=== PATIENT | female | born 1955 | race American Indian/Alaskan Native ===

== ENCOUNTER 2016-08-23 13:38 | Inpatient (IN) | payer BC, OTHER ==
[2016-08-23] MEDS ORDERED: Sodium Chloride 0.9% 1,000 ML IV ONE (14:29)
[2016-08-23] MEDS ORDERED: Morphine 4 MG/ML VIAL ONE (14:43)
[2016-08-23] MEDS ORDERED: Sodium Chloride 0.9% 1,000 ML ONE ×2 (14:43→18:12)
[2016-08-23 14:53] LABS: BASO % 0.5 % (0.0-2.0); EOS % 0.2 % (0.0-4.0); HEMATOCRIT 38.5 % (34.0-47.0); LYMPH # 0.8 K/uL (1.0-4.3); LYMPH % 15.4 % (20.0-40.0); MEAN CELL VOLUME 93.3 fL (81.0-99.0); MEAN CORPUSCULAR HGB CONC 33.2 g/dL (33.0-37.0); MEAN PLATELET VOLUME 9.3 fL (7.2-11.7); MONO # 0.4 K/uL (0.0-0.8); MONO % 7.1 % (0.0-10.0); RED CELL DISTRIBUTION WIDTH 13.7 % (11.5-14.5)
[2016-08-23 15:05] LABS: RBC URINE 2 /hpf (0-3); URINE BILIRUBIN NEGATIVE (NEGATIVE); URINE BLOOD NEGATIVE (NEGATIVE); URINE COLOR Yellow (YELLOW); URINE GLUCOSE (UA) NORMAL (Normal); URINE KETONE TRACE mg/dL (NEGATIVE); URINE LEUKOCYTE ESTERASE NEG Leu/uL (Negative); URINE PROTEIN 2+ mg/dL (NEGATIVE); URINE UROBILINOGEN NORMAL mg/dL (0.2-1.0); WBC URINE < 1 /hpf (0-5)
--- NOTE | 2016-08-23 15:41 | C.PDOC ---
History Of Present Illness 61 year old female presents to the ED with complaints of generalized abdominal pain that began around 7 o'clock this morning. Patient notes associated nausea, vomiting, and pain is progressively worsening. She mentions a history of bowel obstruction and bowel resection. Patient states last bowel movement was this morning and denies any fever or chills. Time Seen by Provider: 08/23/16 14:16 Chief Complaint (Nursing): Abdominal Pain History Per: Patient History/Exam Limitations: no limitations Onset/Duration Of Symptoms: Hrs Current Symptoms Are (Timing): Still Present Location Of Pain/Discomfort: Diffuse Radiation Of Pain To:: None Quality Of Discomfort: "Pain" Associated Symptoms: Nausea, Vomiting. denies: Fever, Chills Last Bowel Movement: Today Recent travel outside of the [place]: No Abnormal Vaginal Bleeding: No Past Medical History Reviewed: Historical Data, Nursing Documentation, Vital Signs Vital Signs: Last Vital Signs Temp 98.3 F 08/23/16 14:06 Pulse 60 08/23/16 16:32 Resp 16 08/23/16 16:32 BP 160/80 H 08/23/16 16:32 Pulse Ox 95 08/23/16 18:45 - Medical History PMH: Obstructive Bowel Other Surgeries: colon resection Family History: States: Unknown Family Hx - Social History Hx Tobacco Use: No Hx Alcohol Use: No Hx Substance Use: No - Immunization History Hx Influenza Vaccination: No Hx Pneumococcal Vaccination: No Review Of Systems Constitutional: Negative for: Fever, Chills, Sweats Cardiovascular: Negative for: Chest Pain, Palpitations Respiratory: Negative for: Cough, Shortness of Breath Gastrointestinal: Positive for: Nausea, Vomiting, Abdominal Pain. Negative for : Diarrhea Neurological: Negative for: Headache Physical Exam - Physical Exam Appears: Non-toxic, Other (patient appears uncomfortable and in pain ) Skin: Warm, Dry, No Diaphoretic, No Pale, No Rash Head: Atraumatic, Normacephalic Eye(s): bilateral: Normal Inspection Oral Mucosa: Moist Neck: Supple Chest: Symmetrical, No Deformity Cardiovascular: Rhythm Regular Respiratory: No Rales, No Rhonchi, No Stridor, No Wheezing Gastrointestinal/Abdominal: Soft, Tenderness (diffuse tenderness ), Distention ( mild distension ), No Guarding, No Rebound, Other (hypoactive bowel sounds ) Back: Normal Inspection, No Vertebral Tenderness, No Paraspinal Tenderness Extremity: Normal ROM, No Tenderness Neurological/Psych: Oriented x3, Normal Speech ED Course And Treatment - Laboratory Results Result Diagrams: 08/23/16 14:42 08/23/16 15:38 Lab Interpretation: No Acute Changes O2 Sat by Pulse Oximetry: 95 (room air ) Pulse Ox Interpretation: Normal - CT Scan/US abdomen Other Rad Studies (CT/US): Read By Radiologist (Edwar Frazier), Radiology Report Reviewed CT/US Interpretation: IMPRESSION: Findings consistent with small bowel obstruction. The transitional point is likely at the midline mid to lower abdomen adjacent to the umbilicus. There is suspicious for paraumbilical hernia. Surgical changes suggestive of prior bowel anastomosis also seen at the midline adjacent to the umbilicus. Small amount of free fluid in the abdomen and pelvis likely related to bowel obstruction. No evidence of pneumatosis or free air. Medical Decision Making Medical Decision Making: Impression: Abdominal pain associated with vomiting Prior records reviewed, patient was seen 09/28/13 for abdominal pain and admitted for SBO under med/surge Dr Flores Plan: * Labs * Xray obstructive series * IV NS Morphine Progress: XRay reviewed showing dilated small-bowel loop in the mid abdomen may suggest focal ileus. Localized small bowel obstruction is not excluded. [id number] Page surgical instrument technician for consult and Dr Flores at patient request [id number] residential door unit installer Goldie comes to ED to evaluate patient. as per surgical instrument technician dr Flores will be consult on case and to admit to medicine. Resident will apply NG tube [id number] Contact and spoke with PCP Dr Anamaria Stein who accepts patient to service Disposition - Disposition Disposition Time: 16:18 Condition: FAIR - POA Present On Arrival: None - Clinical Impression Clinical Impression: Small bowel obstruction - Scribe Statement The provider has reviewed the documentation as recorded by the Scribe Alexandra Perez All medical record entries made by the Scribe were at my direction and personally dictated by me. I have reviewed the chart and agree that the record accurately reflects my personal performance of the history, physical exam, medical decision making, and the department course for this patient. I have also personally directed, reviewed, and agree with the discharge instructions and disposition. Decision To Admit - Pt Status Changed To: Hospital Disposition Of: Inpatient - Admit Certification Admit to Inpatient:: After my assessment, the patient will require hospitalization for at least two midnights. This is because of the severity of symptoms shown, intensity of services needed, and/or the medical risk in this patient being treated as an outpatient. - InPatient: Physician Admission Certification:: Patient to be admitted for SBO, patient actively vomiting and has NG tube will treat supportive and surgery team is aware, consult Dr Flores - . Bed Request Type: Regular Admitting Physician: Nilsa Stein Patient Diagnosis: Small bowel obstruction
--- NOTE | 2016-08-23 15:48 | RAD ---
PROCEDURE: Radiographs of the chest and abdomen (obstructive series) HISTORY: abd pain COMPARISON: No prior. TECHNIQUE: AP radiograph of the chest, with upright and supine radiographs of the abdomen. FINDINGS: CHEST: Lungs: There is minor crowding at the lung bases. Cardiovascular: Normal size heart. No pulmonary vascular congestion. Pleura: No pleural fluid. No pneumothorax. Other findings: None. ABDOMEN AND PELVIS: Bowel: There is a dilated probable small bowel loops seen in the mid abdomen with air-fluid levels on both sides of the bowel loops on the upright images. Moderate residual fecal material seen throughout the colon. No other bowel dilatation is clearly seen elsewhere although some minimally irregular bowel loops may also be noted in the mid abdomen. Free air: None. Bones: Degenerative changes are seen in the spine. Other findings: None. IMPRESSION: Nonspecific dilated small-bowel loop in the mid abdomen may suggest focal ileus. Localized small bowel obstruction is not excluded.
[2016-08-23 15:53] LABS: CHLORIDE 106 mmol/L (98-107)
[2016-08-23 15:54] LABS: POTASSIUM 3.6 mmol/L (3.6-5.2); SODIUM 142 mmol/L (132-148)
[2016-08-23 15:56] LABS: ALB/GLOB RATIO 1.1 (1.0-2.1); ALKALINE PHOSPHATASE 118 U/L (38-126); ALT/SGPT 75 U/L (9-52); AST/SGOT 38 U/L (14-36); BILIRUBIN,TOTAL 0.5 mg/dL (0.2-1.3); BLOOD UREA NITROGEN 12 mg/dL (7-17); CALCIUM 9.3 mg/dl (8.6-10.4); CARBON DIOXIDE 26 mmol/L (22-30); GFR AFRICAN-AMERICAN > 60; GLUCOSE,RANDOM 105 mg/dL (65-105); TOTAL PROTEIN 7.7 g/dL (6.3-8.3)
[2016-08-23] MEDS ORDERED: Labetalol 25mg/5ml Syringe IV STA (16:01)
[2016-08-23] MEDS ORDERED: Labetalol 25mg/5ml Syringe ONE (16:22)
--- NOTE | 2016-08-23 16:28 | CP.PCM.CON ---
History of Present Illness - History of Present Illness History of Present Illness: Surgery: Dr. Flores CC: Abd pain HPI: 61F w. past hx of SBO presents to ED w. acute onset of abd pain at 7am. Pain is diffuse but most prominent in epigastric area. Pain is constant. Pain is described as '[place]". Pain accompanied by Nausea and vomiting. Pt had 10 episodes of emesis, NBNB. She did have a normal BM this morning, but no further BM or flatus since. She states that she last had this pain 3 yrs ago when she was admitted for SBO. The pain resolved without surgical intervention. In ED AXR was ordered which showed dilated loops of small bowel and air fluid levels. NGT was placed and CT has been ordered. Pt denies fever, has intermittent chills, no HURST/blurred vision, no CP/palpitations, no SOB/cough, no hematuria/dysuria. PMH: SBO PSH: x 2, myomectomy, small bowel resection Meds: OTC supplements ALL: peanuts Social: No ETOH/tobacco/drugs Fhx: non-contributory Review of Systems - Review of Systems All systems: reviewed and no additional remarkable complaints except (HPI) Past Patient History - Infectious Disease Hx of Infectious Diseases: None - Tetanus Immunizations Tetanus Immunization: Unknown - Past Medical History & Family History Past Medical History?: No - Past Social History Smoking Status: Never Smoked - CARDIAC Hx Cardiac Disorders: No - PULMONARY Hx Respiratory Disorders: No - NEUROLOGICAL Hx Neurological Disorder: No - HEENT Hx HEENT Problems: No - RENAL Hx Chronic Kidney Disease: No - ENDOCRINE/METABOLIC Hx Endocrine Disorders: No - HEMATOLOGICAL/ONCOLOGICAL Hx Blood Disorders: No - INTEGUMENTARY Hx Dermatological Problems: No - MUSCULOSKELETAL/RHEUMATOLOGICAL Hx Musculoskeletal Disorders: No Hx Falls: No - GASTROINTESTINAL Hx Gastrointestinal Disorders: Yes Hx Vomiting: Yes Other/Comment: BOWEL OBSTRUCTION PER PATIENT. CHRONIC GI PROBLEM/VOMITNG - GENITOURINARY/GYNECOLOGICAL Hx Genitourinary Disorders: No - PSYCHIATRIC Hx Substance Use: No - SURGICAL HISTORY Hx Section: Yes (x 2) Other/Comment: x 2, exploratory laparotomy and bowel resection for SBO due to bowel injury during prior ,fibroid removal - ANESTHESIA Hx Anesthesia: Yes Hx Anesthesia Reactions: No Hx Malignant Hyperthermia: No Meds Allergies/Adverse Reactions: Allergies Allergy/AdvReac Type Severity Reaction Status Date / Time peanut Allergy Intermediate Verified 08/23/16 14:12 Physical Exam - Constitutional Appears: Non-toxic, No Acute Distress - Head Exam Head Exam: ATRAUMATIC, NORMOCEPHALIC - Eye Exam Eye Exam: EOMI. absent: Scleral icterus - ENT Exam ENT Exam: Mucous Membranes Moist, Normal External Ear Exam - Neck Exam Neck exam: Positive for: Full Rom - Respiratory Exam Respiratory Exam: NORMAL BREATHING PATTERN. absent: Accessory Muscle Use, Respiratory Distress - GI/Abdominal Exam GI & Abdominal Exam: Soft, Tenderness (diffuse). absent: Distended, Firm, Guarding, Rebound, Rigid - Extremities Exam Extremities exam: Negative for: calf tenderness, pedal edema - Neurological Exam Neurological exam: Alert, Oriented x3 - Psychiatric Exam Psychiatric exam: Normal Affect, Normal Mood Results - Vital Signs Recent Vital Signs: Last Vital Signs Temp 98.3 F 08/23/16 14:06 Pulse 74 08/23/16 14:06 Resp 18 08/23/16 14:06 BP 209/94 H 08/23/16 14:06 Pulse Ox 95 08/23/16 15:41 - Labs Result Diagrams: 08/23/16 14:42 08/23/16 15:38 Labs: Laboratory Results - last 24 hr 08/23/16 08/23/16 08/23/16 14:42 14:42 15:38 WBC 5.0 RBC 4.13 Hgb 12.8 D Hct 38.5 MCV 93.3 MCH 31.0 MCHC 33.2 RDW 13.7 Plt Count 202 MPV 9.3 Neut % (Auto) 76.8 H Lymph % (Auto) 15.4 L Love % (Auto) 7.1 Eos % (Auto) 0.2 Baso % (Auto) 0.5 Neut # 3.8 Lymph # 0.8 L Love # 0.4 Eos # 0.0 Baso # 0.0 Sodium 142 Potassium 3.6 Chloride 106 Carbon Dioxide 26 Anion Gap 14 BUN 12 Creatinine 0.6 L Est GFR ( Amer) > 60 Est GFR (Non-Af Amer) > 60 Random Glucose 105 Calcium 9.3 Total Bilirubin 0.5 AST 38 H D ALT 75 H D Alkaline Phosphatase 118 Total Protein 7.7 Albumin 4.0 Globulin 3.7 Albumin/Globulin Ratio 1.1 Lipase 59 Urine Color Yellow Urine Clarity Clear Urine pH 8.0 Ur Specific [place] 1.020 Urine Protein 2+ H Urine Glucose (UA) Normal Urine Ketones Trace Urine Blood Negative Urine Nitrate Negative Urine Bilirubin Negative Urine Urobilinogen Normal Ur Leukocyte Esterase Neg Urine WBC (Auto) < 1 Urine RBC (Auto) 2 Ur Squamous Epith Cells 1 - Imaging and Cardiology Abdominal x-ray Status: Image reviewed by me, Report reviewed by me Assessment & Plan - Assessment and Plan (Free Text) Assessment: 61F w. SBO -NPO -IVF -dilaudid -zofran -f/u CT -serial abd exams -NGT low intermittent suction -GI/DVT prophylaxis -d/w attending Zemaitis PGY2
[2016-08-23] MEDS ORDERED: Iohexol 300 100 ML IJ ONE (16:40)
--- NOTE | 2016-08-23 17:52 | CT ---
PROCEDURE: CT Abdomen and Pelvis with contrast HISTORY: bowel obstruction COMPARISON: Comparison is made to the previous study dated 09/28/2013 TECHNIQUE: Contrast dose: 100 mL Omnipaque 300 Radiation dose: Total exam DLP = 471.65 mGy-cm. This CT exam was performed using one or more of the following dose reduction techniques: Automated exposure control, adjustment of the mA and/or kV according to patient size, and/or use of iterative reconstruction technique. FINDINGS: LOWER THORAX: No evidence of acute pathology or pleural effusion. NG tube seen extending to the stomach. LIVER: Unremarkable. No gross lesion or ductal dilatation. GALLBLADDER AND BILE DUCTS: Unremarkable. PANCREAS: Unremarkable. No gross lesion or ductal dilatation. SPLEEN: Unremarkable. ADRENALS: Unremarkable. No mass. KIDNEYS AND URETERS: Unremarkable. No hydronephrosis. No solid mass. VASCULATURE: Unremarkable. No aortic aneurysm. BOWEL: Findings consistent with mechanical small bowel obstruction. The transitional point is likely at the midline mid to lower abdomen at or adjacent to bowel anastomosis and paraumbilical hernia. The distal small bowel loops are collapsed. The large bowel is also partially collapse. No evidence of intestinal pneumatosis. APPENDIX: No evidence of appendicitis. PERITONEUM: Small amount of free fluid seen in the abdomen and pelvis. No evidence of free air. LYMPH NODES: Mildly enlarged mesenteric lymph nodes likely reactive. BLADDER: Unremarkable. REPRODUCTIVE: The uterus is mildly enlarged likely contains fibroids. BONES: No acute fracture. OTHER FINDINGS: None. IMPRESSION: Findings consistent with small bowel obstruction. The transitional point is likely at the midline mid to lower abdomen adjacent to the umbilicus. There is suspicious for paraumbilical hernia. Surgical changes suggestive of prior bowel anastomosis also seen at the midline adjacent to the umbilicus. Small amount of free fluid in the abdomen and pelvis likely related to bowel obstruction. No evidence of pneumatosis or free air.
[2016-08-23] MEDS: Sodium Chloride 0.9% 1,000 ML IV SCH (18:15)
[2016-08-23] MEDS ORDERED: HYDROmorphone 1 mg/ml ISec ONE (18:22)
[2016-08-23] MEDS: HYDROmorphone 0.5 mg/0.5 ml ISec IVP PRN ×2 (18:24→22:43)
[2016-08-24] MEDS: Sodium Chloride 0.9% 1,000 ML IV SCH ×3 (02:54→15:09)
--- NOTE | 2016-08-24 08:21 | CP.PCM.PN ---
Subjective - Date & Time of Evaluation Date of Evaluation: 08/24/16 Time of Evaluation: 08:18 - Subjective Subjective: Gen Sx: Dr Flores Pt S&e. NAEO. States she feels better now. Still distended. Not passing flatus. NGT was clamped. Reset to suction and flushed. Objective - Vital Signs/Intake and Output Vital Signs (last 24 hours): Temp Pulse Resp BP Pulse Ox 98.4 F 58 L 20 120/66 97 08/23/16 23:25 08/23/16 23:25 08/23/16 23:25 08/23/16 23:25 08/23/16 23:25 Intake and Output: 08/24/16 08/24/16 06:59 18:59 Intake Total 920 Balance 920 - Medications Medications: Current Medications Famotidine (Pepcid) 20 mg IVP BID [facility] Last Admin: 08/23/16 18:15 Dose: 20 mg Hydromorphone HCl (Dilaudid) 0.5 mg IVP Q4H PRN PRN Reason: Pain, moderate (4-7) Last Admin: 08/23/16 22:43 Dose: 0.5 mg Sodium Chloride (Sodium Chloride 0.9%) 1,000 mls @ 115 mls/hr IV .Q8H42M [facility] Last Admin: 08/24/16 04:35 Dose: 115 mls/hr Ondansetron HCl (Zofran Inj) 4 mg IVP Q4 PRN PRN Reason: Nausea/Vomiting Pneumococcal Polyvalent Vaccine (Pneumovax 23 Vaccine) 0.5 ml IM .ONCE ONE Stop: 08/25/16 10:01 - Constitutional Appears: Non-toxic, No Acute Distress - Respiratory Exam Respiratory Exam: absent: Accessory Muscle Use, Respiratory Distress - Cardiovascular Exam Cardiovascular Exam: REGULAR RHYTHM. absent: Tachycardia - GI/Abdominal Exam GI & Abdominal Exam: Distended, Soft, Tenderness (diffuse but improved) - Neurological Exam Neurological Exam: Alert, Awake, Oriented x3 - Psychiatric Exam Psychiatric exam: Normal Affect, Normal Mood - Skin Skin Exam: Normal Color, Warm Assessment and Plan - Assessment and Plan (Free Text) Assessment: 61F w/ SBO Plan: NPO iv fluids Cont conservative mgmt will d/w Dr Mark Orantes, PGY2
--- NOTE | 2016-08-24 10:45 | RAD ---
HISTORY: NGT COMPARISON: No prior. FINDINGS: LUNGS: No active pulmonary disease. PLEURA: No significant pleural effusion identified, no pneumothorax apparent. CARDIOVASCULAR: Normal heart size. No congestive change. Nasogastric tube extends to left upper quadrant of abdomen. Please note that the side hole of the nasogastric tube is situated at the level of the gastroesophageal junction. OSSEOUS STRUCTURES: No significant abnormalities. VISUALIZED UPPER ABDOMEN: Normal. OTHER FINDINGS: None. IMPRESSION: No infiltrate/ effusion. Nasogastric tube extends to left upper quadrant of abdomen, with side hole noted at the level of the gastroesophageal junction.
[2016-08-24 11:12] LABS: HEMATOCRIT 33.8 % (34.0-47.0); MEAN CELL VOLUME 93.2 fL (81.0-99.0); MEAN CORPUSCULAR HEMOGLOBIN 30.6 pg (27.0-31.0); MEAN CORPUSCULAR HGB CONC 32.9 g/dL (33.0-37.0); RED CELL DISTRIBUTION WIDTH 13.7 % (11.5-14.5)
--- NOTE | 2016-08-24 11:20 | CP.PCM.PN ---
Subjective - Date & Time of Evaluation Date of Evaluation: 08/24/16 Time of Evaluation: 11:17 - Subjective Subjective: PGY2 Medicine note- Dr. Stein's Service: Patient is a 61 year old female with PMHx significant for SBO x 5 in the past. Patient states that yesterday AM she had a normal bowel movement but later in the day began vomiting and had sharp acute abdominal pain around the umbilicus. Patient states that she has had similar symptoms in the past when she had a bowel obstruction. Patient denies vomiting since admission to the hospital, denies flatus, bowel movement, nausea. PMD: Emil PMHx: SBO x5 PSHx: x 2, myomectomy, bowel resection following myomectomy Meds: vitamins ALL: peanuts Social: No ETOH/tobacco/drugs Fhx: non-contributory Objective - Vital Signs/Intake and Output Vital Signs (last 24 hours): Temp Pulse Resp BP Pulse Ox 98.2 F 67 18 177/93 H 98 08/24/16 07:30 08/24/16 07:30 08/24/16 07:30 08/24/16 07:30 08/24/16 07:30 Intake and Output: 08/24/16 08/24/16 06:59 18:59 Intake Total 920 Balance 920 - Medications Medications: Current Medications Famotidine (Pepcid) 20 mg IVP BID [facility] Last Admin: 08/24/16 09:40 Dose: 20 mg Hydromorphone HCl (Dilaudid) 0.5 mg IVP Q4H PRN PRN Reason: Pain, moderate (4-7) Last Admin: 08/23/16 22:43 Dose: 0.5 mg Sodium Chloride (Sodium Chloride 0.9%) 1,000 mls @ 115 mls/hr IV .Q8H42M [facility] Last Admin: 08/24/16 04:35 Dose: 115 mls/hr Metoclopramide HCl (Reglan) 5 mg IVP Q8H [facility] Last Admin: 08/24/16 09:40 Dose: 5 mg Ondansetron HCl (Zofran Inj) 4 mg IVP Q4 PRN PRN Reason: Nausea/Vomiting Pneumococcal Polyvalent Vaccine (Pneumovax 23 Vaccine) 0.5 ml IM .ONCE ONE Stop: 08/25/16 10:01 - Labs Labs: 08/24/16 11:07 - Constitutional Appears: Non-toxic, No Acute Distress - Head Exam Head Exam: ATRAUMATIC, NORMOCEPHALIC - ENT Exam Additional comments: NG tube taped in place, suctioning small amount of fluid - Respiratory Exam Respiratory Exam: Clear to Ausculation Bilateral - Cardiovascular Exam Cardiovascular Exam: +S1, +S2 - GI/Abdominal Exam GI & Abdominal Exam: Soft, Tenderness (diffuse), Hypoactive Bowel Sounds. absent: Guarding, Rigid - Extremities Exam Extremities Exam: Normal Inspection. absent: Pedal Edema - Neurological Exam Neurological Exam: Alert, Awake - Psychiatric Exam Psychiatric exam: Normal Affect - Skin Skin Exam: Warm Assessment and Plan - Assessment and Plan (Free Text) Assessment: Small bowel obstruction NPO IV fluids dilaudid 0.5mg IV q4prn Reglan 5mg IV q8h NGT to suction Dr. Flores, general surgery, on the case- help appreciated Abd/ pelvis CT: transition point in mid/ lower abdomen adjacent to umbilicus, question of paraumbilical hernia, srugical changes- prior bowel anastamosis Abd obstruction series: dilated small bowel loops, questionable focal ileus Prophylaxis pepcid 20mg IV BID SCDs All medical management as per Dr. Stein
[2016-08-24 11:31] LABS: CHLORIDE 105 mmol/L (98-107); POTASSIUM 4.1 mmol/L (3.6-5.2); SODIUM 139 mmol/L (132-148)
[2016-08-24 11:33] LABS: GFR AFRICAN-AMERICAN > 60
[2016-08-24 11:34] LABS: ALKALINE PHOSPHATASE 89 U/L (38-126); ALT/SGPT 59 U/L (9-52); AST/SGOT 30 U/L (14-36); BILIRUBIN,TOTAL 0.5 mg/dL (0.2-1.3); BLOOD UREA NITROGEN 12 mg/dL (7-17); CARBON DIOXIDE 26 mmol/L (22-30); GLUCOSE,RANDOM 94 mg/dL (65-105); TOTAL PROTEIN 6.4 g/dL (6.3-8.3)
[2016-08-24 11:35] LABS: CALCIUM 8.4 mg/dl (8.6-10.4)
[2016-08-25] MEDS: Sodium Chloride 0.9% 1,000 ML IV SCH (02:16)
[2016-08-25] MEDS: HYDROmorphone 0.5 mg/0.5 ml ISec IVP PRN ×4 (03:23→18:55)
[2016-08-25 06:22] LABS: BASO % 0.1 % (0.0-2.0); EOS % 0.2 % (0.0-4.0); HEMATOCRIT 34.1 % (34.0-47.0); LYMPH # 0.8 K/uL (1.0-4.3); LYMPH % 11.6 % (20.0-40.0); MEAN CELL VOLUME 92.5 fL (81.0-99.0); MEAN CORPUSCULAR HEMOGLOBIN 30.6 pg (27.0-31.0); MEAN CORPUSCULAR HGB CONC 33.1 g/dL (33.0-37.0); MONO # 0.6 K/uL (0.0-0.8); MONO % 8.2 % (0.0-10.0); RED CELL DISTRIBUTION WIDTH 13.8 % (11.5-14.5)
[2016-08-25 06:45] LABS: CHLORIDE 107 mmol/L (98-107); SODIUM 137 mmol/L (132-148)
[2016-08-25 06:46] LABS: POTASSIUM 3.6 mmol/L (3.6-5.2)
[2016-08-25 06:48] LABS: ALB/GLOB RATIO 1.1 (1.0-2.1); ALKALINE PHOSPHATASE 83 U/L (38-126); ALT/SGPT 47 U/L (9-52); AST/SGOT 32 U/L (14-36); BILIRUBIN,TOTAL 0.7 mg/dL (0.2-1.3); BLOOD UREA NITROGEN 11 mg/dL (7-17); CALCIUM 8.3 mg/dl (8.6-10.4); CARBON DIOXIDE 23 mmol/L (22-30); GFR AFRICAN-AMERICAN > 60; GLUCOSE,RANDOM 86 mg/dL (65-105); TOTAL PROTEIN 6.3 g/dL (6.3-8.3)
[2016-08-25] MEDS ORDERED: Pneumococcal 23-Valent Vaccine IM ONE (10:00)
--- NOTE | 2016-08-25 10:06 | CP.PCM.PN ---
Subjective - Date & Time of Evaluation Date of Evaluation: 08/25/16 Time of Evaluation: 10:03 - Subjective Subjective: SURGERY NOTE FOR DR. CORNELIUS 61F seen and examined at bedside. Patient states she still has mild abdominal pain and now developing a headache. States she did have one bout of vomiting yesterday. Admits to flatus , denies bowel movement, NGT output 200cc in 12 hours. Objective - Vital Signs/Intake and Output Vital Signs (last 24 hours): Temp Pulse Resp BP Pulse Ox 98.5 F 58 L 18 153/82 H 99 08/25/16 07:15 08/25/16 07:15 08/25/16 07:15 08/25/16 07:15 08/25/16 07:15 Intake and Output: 08/25/16 08/25/16 06:59 18:59 Intake Total 920 Output Total 0 Balance 920 - Medications Medications: Current Medications Famotidine (Pepcid) 20 mg IVP BID [facility] Last Admin: 08/25/16 09:02 Dose: 20 mg Hydromorphone HCl (Dilaudid) 0.5 mg IVP Q4H PRN PRN Reason: Pain, moderate (4-7) Last Admin: 08/25/16 09:02 Dose: 0.5 mg Sodium Chloride (Sodium Chloride 0.9%) 1,000 mls @ 115 mls/hr IV .Q8H42M [facility] Last Admin: 08/25/16 02:16 Dose: 115 mls/hr Metoclopramide HCl (Reglan) 5 mg IVP Q8H [facility] Last Admin: 08/25/16 09:02 Dose: 5 mg Ondansetron HCl (Zofran Inj) 4 mg IVP Q4 PRN PRN Reason: Nausea/Vomiting - Labs Labs: 08/25/16 06:09 08/25/16 06:09 - Constitutional Appears: Non-toxic, No Acute Distress - Respiratory Exam Respiratory Exam: Clear to Ausculation Bilateral, NORMAL BREATHING PATTERN - Cardiovascular Exam Cardiovascular Exam: REGULAR RHYTHM, +S1, +S2 Additional comments: NGT output 200cc in 12hours - GI/Abdominal Exam GI & Abdominal Exam: Soft. absent: Distended, Firm, Guarding, Rigid, Tenderness , Rebound - Neurological Exam Neurological Exam: Alert - Skin Skin Exam: Dry, Intact, Normal Color, Warm Assessment and Plan - Assessment and Plan (Free Text) Assessment: 61F with SBO Plan: - NPO - continue IVF, pain control - GI ppx - encourage ambulation - await bowel movement Further recs discuss with Dr. Mark Castro, PGY1
--- NOTE | 2016-08-25 11:00 | CP.PCM.PN ---
Subjective - Date & Time of Evaluation Date of Evaluation: 08/25/16 Time of Evaluation: 09:10 - Subjective Subjective: PGY2 Medicine Note- Dr. Stein's service Patient seen and examined. Patient reports small amount of flatus yesterday evening but has not had flatus since. Patient reports one episode of bilious emesis as well. Patient reports epigastric pain and headache today. Objective - Vital Signs/Intake and Output Vital Signs (last 24 hours): Temp Pulse Resp BP Pulse Ox 98.5 F 58 L 18 153/82 H 99 08/25/16 07:15 08/25/16 07:15 08/25/16 07:15 08/25/16 07:15 08/25/16 07:15 Intake and Output: 08/25/16 08/25/16 06:59 18:59 Intake Total 920 Output Total 0 Balance 920 - Medications Medications: Current Medications Acetaminophen/Butalbital/Caffeine (Fioricet) 1 tab PO Q4 PRN PRN Reason: Headache Famotidine (Pepcid) 20 mg IVP BID [facility] Last Admin: 08/25/16 09:02 Dose: 20 mg Hydromorphone HCl (Dilaudid) 0.5 mg IVP Q4H PRN PRN Reason: Pain, moderate (4-7) Last Admin: 08/25/16 09:02 Dose: 0.5 mg Sodium Chloride (Sodium Chloride 0.9%) 1,000 mls @ 115 mls/hr IV .Q8H42M [facility] Last Admin: 08/25/16 02:16 Dose: 115 mls/hr Metoclopramide HCl (Reglan) 5 mg IVP Q8H [facility] Last Admin: 08/25/16 09:02 Dose: 5 mg Ondansetron HCl (Zofran Inj) 4 mg IVP Q4 PRN PRN Reason: Nausea/Vomiting - Labs Labs: 08/25/16 06:09 08/25/16 06:09 - Constitutional Appears: Non-toxic, No Acute Distress - Head Exam Head Exam: ATRAUMATIC, NORMOCEPHALIC - Eye Exam Eye Exam: EOMI - ENT Exam ENT Exam: Mucous Membranes Moist Additional comments: NGT in place, bilious output - Respiratory Exam Respiratory Exam: Clear to Ausculation Bilateral, NORMAL BREATHING PATTERN. absent: Rales, Rhonchi, Wheezes - Cardiovascular Exam Cardiovascular Exam: +S1, +S2 - GI/Abdominal Exam GI & Abdominal Exam: Soft, Tenderness (diffuse), Normal Bowel Sounds. absent: Distended, Firm - Extremities Exam Extremities Exam: absent: Pedal Edema - Neurological Exam Neurological Exam: Alert, Awake - Psychiatric Exam Psychiatric exam: Normal Affect - Skin Skin Exam: Dry, Warm Assessment and Plan - Assessment and Plan (Free Text) Assessment: Small bowel obstruction NPO IV fluids- D5 1/2 NS dilaudid 0.5mg IV q4prn Reglan 5mg IV q8h NGT to suction Dr. Flores, general surgery, on the case- help appreciated Abd/ pelvis CT: transition point in mid/ lower abdomen adjacent to umbilicus, question of paraumbilical hernia, srugical changes- prior bowel anastamosis Abd obstruction series: dilated small bowel loops, questionable focal ileus Prophylaxis pepcid 20mg IV BID heparin SC q8h SCDs All medical management as per Dr. Stein
[2016-08-25] MEDS: Potassium Chloride 20 MEQ in Dextrose 5%/0.45% NS 1,000 ML IV SCH ×2 (11:47→22:03)
[2016-08-26] MEDS: HYDROmorphone 0.5 mg/0.5 ml ISec IVP PRN (01:52)
[2016-08-26 06:13] LABS: BASO % 0.3 % (0.0-2.0); EOS # 0.1 K/uL (0.0-0.7); EOS % 1.4 % (0.0-4.0); HEMATOCRIT 31.1 % (34.0-47.0); LYMPH # 1.5 K/uL (1.0-4.3); LYMPH % 24.8 % (20.0-40.0); MEAN CELL VOLUME 92.9 fL (81.0-99.0); MEAN CORPUSCULAR HEMOGLOBIN 31.1 pg (27.0-31.0); MEAN CORPUSCULAR HGB CONC 33.5 g/dL (33.0-37.0); MEAN PLATELET VOLUME 9.6 fL (7.2-11.7); MONO # 0.5 K/uL (0.0-0.8); MONO % 8.7 % (0.0-10.0); RED CELL DISTRIBUTION WIDTH 13.8 % (11.5-14.5); WHITE BLOOD COUNT 6.1 K/uL (4.8-10.8)
[2016-08-26 06:38] LABS: CHLORIDE 104 mmol/L (98-107); SODIUM 136 mmol/L (132-148)
[2016-08-26 06:39] LABS: POTASSIUM 3.8 mmol/L (3.6-5.2)
[2016-08-26 06:40] LABS: GFR AFRICAN-AMERICAN > 60
[2016-08-26 06:41] LABS: ALKALINE PHOSPHATASE 79 U/L (38-126); ALT/SGPT 41 U/L (9-52); AST/SGOT 30 U/L (14-36); BILIRUBIN,TOTAL 0.7 mg/dL (0.2-1.3); BLOOD UREA NITROGEN 9 mg/dL (7-17); CARBON DIOXIDE 25 mmol/L (22-30); GLUCOSE,RANDOM 112 mg/dL (65-105); PHOSPHOROUS 2.6 mg/dL (2.5-4.5); TOTAL PROTEIN 6.3 g/dL (6.3-8.3)
[2016-08-26 06:42] LABS: CALCIUM 8.2 mg/dl (8.6-10.4); MAGNESIUM 1.8 mg/dL (1.6-2.3)
--- NOTE | 2016-08-26 08:21 | CP.PCM.PN ---
Subjective - Date & Time of Evaluation Date of Evaluation: 08/26/16 Time of Evaluation: 08:19 - Subjective Subjective: SURGERY NOTE FOR DR. CORNELIUS 61F seen and examined at bedside. Feels much better today, denies abdominal pain , denies nausea, vomiting overnight. Admits flatus, denies BM. Objective - Vital Signs/Intake and Output Vital Signs (last 24 hours): Temp Pulse Resp BP Pulse Ox 98.2 F 62 20 176/84 H 96 08/25/16 23:15 08/25/16 23:15 08/25/16 23:15 08/25/16 23:15 08/25/16 23:15 Intake and Output: 08/26/16 08/26/16 06:59 18:59 Intake Total 800 Output Total 100 Balance 700 - Medications Medications: Current Medications Acetaminophen/Butalbital/Caffeine (Fioricet) 1 tab PO Q4 PRN PRN Reason: Headache Famotidine (Pepcid) 20 mg IVP BID [facility] Last Admin: 08/25/16 18:46 Dose: 20 mg Heparin Sodium (Porcine) (Heparin) 5,000 units SC Q8 [facility] Last Admin: 08/26/16 05:53 Dose: 5,000 units Hydromorphone HCl (Dilaudid) 0.5 mg IVP Q4H PRN PRN Reason: Pain, moderate (4-7) Last Admin: 08/26/16 01:52 Dose: 0.5 mg Potassium Chloride 20 meq/ (Dextrose/Sodium Chloride) 1,010 mls @ 100 mls/hr IV .[id number] [facility] Last Admin: 08/25/16 22:03 Dose: 100 mls/hr Metoclopramide HCl (Reglan) 5 mg IVP Q8H [facility] Last Admin: 08/26/16 01:43 Dose: 5 mg Ondansetron HCl (Zofran Inj) 4 mg IVP Q4 PRN PRN Reason: Nausea/Vomiting - Labs Labs: 08/26/16 06:08 08/26/16 06:08 - Constitutional Appears: Non-toxic, No Acute Distress - ENT Exam ENT Exam: Mucous Membranes Moist - Respiratory Exam Respiratory Exam: Clear to Ausculation Bilateral, NORMAL BREATHING PATTERN - Cardiovascular Exam Cardiovascular Exam: REGULAR RHYTHM, +S1, +S2 - GI/Abdominal Exam GI & Abdominal Exam: Soft. absent: Distended, Firm, Guarding, Rigid, Tenderness , Rebound Additional comments: NGT placed on tramp now - Neurological Exam Neurological Exam: Alert, Awake Assessment and Plan - Assessment and Plan (Free Text) Assessment: 61F with SBO, improving Plan: - NGT on clamp - Advanced to clear liquid diet - monitor for nausea/vomiting/bowel movement - advance if patient tolerates. Further recs discuss with Dr. Mark Castro, PGY1
[2016-08-26] MEDS: Potassium Chloride 20 MEQ in Dextrose 5%/0.45% NS 1,000 ML IV SCH (09:47)
--- NOTE | 2016-08-26 15:37 | CP.PCM.PN ---
Subjective - Date & Time of Evaluation Date of Evaluation: 08/26/16 Time of Evaluation: 09:20 - Subjective Subjective: PGY2 Medicine Note- Dr. Stein's Service Patient seen and examined. Patient reports two episodes of flatus this morning. Patient denies nausea or vomiting. Patient with complaint of epigastric abdominal pain. Patient trying clear liquids today, tolerating. Objective - Vital Signs/Intake and Output Vital Signs (last 24 hours): Temp Pulse Resp BP Pulse Ox 99.3 F 67 18 198/96 H 97 08/26/16 07:20 08/26/16 07:20 08/26/16 07:20 08/26/16 07:20 08/26/16 07:20 Intake and Output: 08/26/16 08/26/16 06:59 18:59 Intake Total 800 1440 Output Total 100 Balance 700 1440 - Medications Medications: Current Medications Acetaminophen/Butalbital/Caffeine (Fioricet) 1 tab PO Q4 PRN PRN Reason: Headache Famotidine (Pepcid) 20 mg IVP BID [facility] Last Admin: 08/26/16 09:46 Dose: 20 mg Heparin Sodium (Porcine) (Heparin) 5,000 units SC Q8 [facility] Last Admin: 08/26/16 14:42 Dose: 5,000 units Hydrochlorothiazide (Hydrodiuril) 25 mg PO DAILY [facility] Last Admin: 08/26/16 11:07 Dose: 25 mg Hydromorphone HCl (Dilaudid) 0.5 mg IVP Q4H PRN PRN Reason: Pain, moderate (4-7) Last Admin: 08/26/16 01:52 Dose: 0.5 mg Potassium Chloride 20 meq/ (Dextrose/Sodium Chloride) 1,010 mls @ 80 mls/hr IV .[id number] [facility] Metoclopramide HCl (Reglan) 5 mg IVP Q8H [facility] Last Admin: 08/26/16 08:55 Dose: 5 mg Ondansetron HCl (Zofran Inj) 4 mg IVP Q4 PRN PRN Reason: Nausea/Vomiting - Labs Labs: 08/26/16 06:08 08/26/16 06:08 - Constitutional Appears: Non-toxic, No Acute Distress - Head Exam Head Exam: ATRAUMATIC, NORMOCEPHALIC - Eye Exam Eye Exam: EOMI - ENT Exam ENT Exam: Mucous Membranes Moist - Respiratory Exam Respiratory Exam: Clear to Ausculation Bilateral - Cardiovascular Exam Cardiovascular Exam: +S1, +S2 - GI/Abdominal Exam GI & Abdominal Exam: Soft, Tenderness (epigastric), Hypoactive Bowel Sounds - Extremities Exam Extremities Exam: Normal Inspection. absent: Pedal Edema - Neurological Exam Neurological Exam: Alert, Awake - Psychiatric Exam Psychiatric exam: Normal Affect - Skin Skin Exam: Warm Assessment and Plan - Assessment and Plan (Free Text) Assessment: Small bowel obstruction CLD IV fluids- D5 1/2 NS with 20 meQ potassium dilaudid 0.5mg IV q4prn Reglan 5mg IV q8h NGT glamped Dr. Flores, general surgery, on the case- help appreciated Abd/ pelvis CT: transition point in mid/ lower abdomen adjacent to umbilicus, question of paraumbilical hernia, srugical changes- prior bowel anastamosis Abd obstruction series: dilated small bowel loops, questionable focal ileus Hypertension starting HCTZ 25mg today, will continue to monitor decreased IVF rate Prophylaxis pepcid 20mg IV BID heparin SC q8h [facility] All medical management as per Dr. Stein
[2016-08-26 15:54] VITALS: RESP 20
[2016-08-26] MEDS: Apap-Butalbital-Caffeine 325-50-40mg Tab PO PRN (22:25)
[2016-08-27] MEDS: Potassium Chloride 20 MEQ in Dextrose 5%/0.45% NS 1,000 ML IV SCH ×2 (00:52→14:43)
[2016-08-27] MEDS: Apap-Butalbital-Caffeine 325-50-40mg Tab PO PRN ×2 (05:48→10:43)
--- NOTE | 2016-08-27 09:09 | CP.PCM.PN ---
Subjective - Date & Time of Evaluation Date of Evaluation: 08/27/16 Time of Evaluation: 09:07 - Subjective Subjective: SURGERY NOTE FOR DR. CORNELIUS 61F seen and examined at bedside. Doing much better today, Denies pain, denies N /V. admits to flatus and had a bowel movement. Objective - Vital Signs/Intake and Output Vital Signs (last 24 hours): Temp Pulse Resp BP Pulse Ox 98.3 F 68 20 166/100 H 97 08/27/16 08:42 08/27/16 08:42 08/27/16 08:42 08/27/16 08:42 08/27/16 08:42 Intake and Output: 08/27/16 08/27/16 06:59 18:59 Intake Total 640 Balance 640 - Medications Medications: Current Medications Acetaminophen/Butalbital/Caffeine (Fioricet) 1 tab PO Q4 PRN PRN Reason: Headache Last Admin: 08/27/16 05:48 Dose: 1 tab Amlodipine Besylate (Norvasc) 5 mg PO DAILY [facility] Famotidine (Pepcid) 20 mg IVP BID [facility] Last Admin: 08/26/16 18:39 Dose: 20 mg Heparin Sodium (Porcine) (Heparin) 5,000 units SC Q8 [facility] Last Admin: 08/27/16 05:40 Dose: 5,000 units Hydrochlorothiazide (Hydrodiuril) 25 mg PO DAILY [facility] Last Admin: 08/26/16 11:07 Dose: 25 mg Hydromorphone HCl (Dilaudid) 0.5 mg IVP Q4H PRN PRN Reason: Pain, moderate (4-7) Last Admin: 08/26/16 01:52 Dose: 0.5 mg Potassium Chloride 20 meq/ (Dextrose/Sodium Chloride) 1,010 mls @ 80 mls/hr IV .[id number] [facility] Last Admin: 08/27/16 00:52 Dose: 80 mls/hr Metoclopramide HCl (Reglan) 5 mg IVP Q8H [facility] Last Admin: 08/27/16 02:02 Dose: 5 mg Ondansetron HCl (Zofran Inj) 4 mg IVP Q4 PRN PRN Reason: Nausea/Vomiting - Labs Labs: 08/26/16 06:08 08/26/16 06:08 - Constitutional Appears: Non-toxic, No Acute Distress - Respiratory Exam Respiratory Exam: Clear to Ausculation Bilateral, NORMAL BREATHING PATTERN - Cardiovascular Exam Cardiovascular Exam: REGULAR RHYTHM, +S1, +S2 - GI/Abdominal Exam GI & Abdominal Exam: Soft. absent: Distended, Firm, Guarding, Rigid, Tenderness , Rebound - Extremities Exam Extremities Exam: absent: Pedal Edema, Tenderness - Neurological Exam Neurological Exam: Alert, Awake Assessment and Plan - Assessment and Plan (Free Text) Assessment: 61F with resolved SBO - advanced to regular - await more BM - follow up labs Further recs discuss with Dr. Mark Castro, PGY1
[2016-08-27 18:16] VITALS: BP 129/79; PULSE 78; TEMP 98; O2SAT 99
== END 2016-08-27 20:54 | disposition home or self-care (01) | DRG 390 ==
LOC: C.ER 13:38 → C.9E 16:18 → C.6T 20:09
PROVIDERS: ADMIT Internal Medicine Pulmonary Disease; ATTEND Internal Medicine Pulmonary Disease
DX: K56.60 Unspecified intestinal obstruction (principal); I10 Essential (primary) hypertension; Z90.49 Acquired absence of other specified parts of digestive tract; Z87.19 Personal history of other diseases of the digestive system; Z91.010 Allergy to peanuts

== ENCOUNTER 2018-07-23 04:55 | Inpatient (IN) | payer BC ==
--- NOTE | 2018-07-23 05:05 | C.PDOC ---
History Of Present Illness patient with hx of SBO, presents with similar complaints, which started yesterday. THey've worsened this am. Sharp, stabbing diffuse abdominal discomfort. No f/c/ Time Seen by Provider: 07/23/18 05:05 Chief Complaint (Nursing): Abdominal Pain History Per: Patient, Family History/Exam Limitations: no limitations Onset/Duration Of Symptoms: Days (1) Current Symptoms Are (Timing): Still Present Context: Other Severity: Severe Pain Scale Rating Of: 6 Location Of Pain/Discomfort: Diffuse Radiation Of Pain To:: None Quality Of Discomfort: Sharp, Cramping, Stabbing Associated Symptoms: Nausea. denies: Fever, Chills, Vomiting Exacerbating Factors: None Alleviating Factors: None Last Bowel Movement: Yesterday Recent travel outside of the [place]: No Additional History Per: Family Abnormal Vaginal Bleeding: No Past Medical History Reviewed: Historical Data, Nursing Documentation, Vital Signs - Medical History PMH: Obstructive Bowel Denies: Chronic Kidney Disease Family History: States: No Known Family Hx - Social History Hx Tobacco Use: No Hx Alcohol Use: No Hx Substance Use: No - Immunization History Hx Influenza Vaccination: No Hx Pneumococcal Vaccination: No Review Of Systems Constitutional: Negative for: Fever, Chills ENT: Negative for: Throat Pain Cardiovascular: Negative for: Chest Pain Respiratory: Negative for: Shortness of Breath Gastrointestinal: Positive for: Nausea, Abdominal Pain. Negative for: Vomiting Genitourinary: Negative for: Dysuria Musculoskeletal: Negative for: Back Pain Skin: Negative for: Rash Neurological: Negative for: Weakness Psych: Negative for: Anxiety Physical Exam - Physical Exam Appears: Non-toxic Skin: Warm, Dry Head: Normacephalic Eye(s): bilateral: Normal Inspection Oral Mucosa: Moist Neck: Supple Chest: Symmetrical Cardiovascular: Rhythm Regular Respiratory: No Rales, No Rhonchi, No Wheezing Gastrointestinal/Abdominal: Bowel Sounds (tympanic to percussion), Soft, Tenderness (diffuse), Distention, No Guarding, No Rebound Back: No CVA Tenderness Extremity: No Tenderness Extremity: Bilateral: Atraumatic Pulses: Left Dorsalis Pedis: Normal, Right Dorsalis Pedis: Normal Neurological/Psych: Oriented x3, Normal Speech, Normal Cognition Gait: Steady ED Course And Treatment - Laboratory Results Result Diagrams: 07/23/18 05:27 07/23/18 05:27 ECG: Interpreted By Me, Viewed By Me ECG Rhythm: Sinus Rhythm (66), Nonspecific Changes O2 Sat by Pulse Oximetry: 100 Pulse Ox Interpretation: Normal - Radiology CXR: Interpreted by Me, Viewed By Me CXR Interpretation: No: Infiltrates, Fracture, Pnemothorax Disposition Counseled Patient/Family Regarding: Studies Performed, Diagnosis - Disposition Disposition Time: 05:05 Condition: FAIR Forms: [employer] (Bengali) - Clinical Impression Clinical Impression: Abdominal pain Physician Patient Turnover Patient Signed Over To: Jack Vazquez Handoff Comments: pending labs, Ct scan, re-eval and dispo
[2018-07-23 05:13] VITALS: BMI 26.6
[2018-07-23] MEDS ORDERED: Sodium Chloride 0.9% 1,000 ML IV ONE (05:13)
[2018-07-23 05:31] LABS: BASO % 0.6 % (0.0-2.0); EOS % 0.1 % (0.0-4.0); HEMOGLOBIN 13.4 g/dL (11.0-16.0); LYMPH # 0.8 K/uL (1.0-4.3); LYMPH % 13.7 % (20.0-40.0); MEAN CELL VOLUME 94.9 fL (81.0-99.0); MEAN CORPUSCULAR HEMOGLOBIN 32.5 pg (27.0-31.0); MEAN CORPUSCULAR HGB CONC 34.2 g/dL (33.0-37.0); MEAN PLATELET VOLUME 8.6 fL (7.2-11.7); MONO # 0.3 K/uL (0.0-0.8); MONO % 5.6 % (0.0-10.0); NEUT # 4.7 K/uL (1.8-7.0); RBC 4.14 Mil/uL (3.80-5.20); RED CELL DISTRIBUTION WIDTH 12.6 % (11.5-14.5); WHITE BLOOD COUNT 5.9 K/uL (4.8-10.8)
[2018-07-23] MEDS ORDERED: Sodium Chloride 0.9% 1,000 ML ONE (05:32)
[2018-07-23 05:38] LABS: INR 1.1; PARTIAL THROMBOPLASTIN TIME 33.3 SECONDS (21-34); PROTHROMBIN TIME 12.3 SECONDS (9.7-12.2)
[2018-07-23 05:44] LABS: ALB/GLOB RATIO 1.2 (1.0-2.1); ALBUMIN 4.4 g/dL (3.5-5.0); ALT/SGPT 17 U/L (9-52); AST/SGOT 28 U/L (14-36); BLOOD UREA NITROGEN 14 mg/dL (7-17); GFR NON-AFRICAN AMERICAN > 60; LIPASE 87 U/L (23-300)
[2018-07-23 05:47] LABS: VENOUS BLOOD GAS BASE EXCESS 3.2 mmol/L (0.0-2.0); VENOUS BLOOD GAS PCO2 37 mmHg (40-60); VENOUS BLOOD GAS PO2 47 mm/Hg (30-55); VENOUS BLOOD PH 7.47 (7.32-7.43)
[2018-07-23] MEDS ORDERED: Iodixanol 320 MG/ML 100 ML BOTTLE IV ONE (06:51)
[2018-07-23] MEDS ORDERED: Piperacillin/Tazobact 3.375 GM in Sodium Chloride 100 ML IVPB STA (08:34)
[2018-07-23] MEDS ORDERED: Piperacillin/Tazobact 3.375 gm 100 ML IVPB ONE (08:57)
--- NOTE | 2018-07-23 09:11 | CP.PCM.CON ---
History of Present Illness - History of Present Illness History of Present Illness: Surgery Consult Note for Dr. Abbott Consult: pSBO HPI 63F, past medical history significant for SBO s/p small bowel resection, pre sented to the ED with diffuse abdominal pain, nausea, and vomiting. Patient states symptoms started last night. 4 episodes of NBNB emesis. Last bowel movement was yesterday, normal, no diarrhea. She has not passed flatus since yesterday. CTAP shows dilated loops of bowel with a small umbilical hernia. Patient denies any aggravating factors. States the zofran helps with the nausea. ROS negative except as stated above. PMH: SBO, Fibroids PSH: x2, Myomectomy, small bowel resection ( or ) FH: Noncontributory SH: Denies tobacco, alcohol, drugs ALL: peanuts Meds: See MAR Review of Systems - Constitutional Constitutional: absent: Chills, Fever, Night Sweats, Weight Loss, Weakness - EENT Eyes: absent: Blurred Vision, Change in Vision Nose/Mouth/Throat: absent: Nasal Congestion, Nasal Discharge - Cardiovascular Cardiovascular: absent: Chest Pain, Dyspnea - Respiratory Respiratory: absent: Cough, Dyspnea - Gastrointestinal Gastrointestinal: Abdominal Pain, Bloating, Nausea, Vomiting. absent: Belching, Constipation, Diarrhea, Hematemesis, Melena - Genitourinary Genitourinary: absent: Difficulty Urinating, Dysuria - Musculoskeletal Musculoskeletal: absent: Back Pain, Neck Pain - Integumentary Integumentary: absent: Bleeding Lesions, Changing Lesions - Neurological Neurological: absent: Confusion, Numbness - Psychiatric Psychiatric: absent: Anxiety, Depression Past Patient History - Infectious Disease Hx of Infectious Diseases: None - Tetanus Immunizations Tetanus Immunization: Unknown - Past Medical History & Family History Past Medical History?: Yes - Past Social History Smoking Status: Never Smoked - CARDIAC Hx Cardiac Disorders: No - PULMONARY Hx Respiratory Disorders: No - NEUROLOGICAL Hx Neurological Disorder: No - HEENT Hx HEENT Problems: No - RENAL Hx Chronic Kidney Disease: No - ENDOCRINE/METABOLIC Hx Endocrine Disorders: No - HEMATOLOGICAL/ONCOLOGICAL Hx Blood Disorders: No - INTEGUMENTARY Hx Dermatological Problems: No - MUSCULOSKELETAL/RHEUMATOLOGICAL Hx Musculoskeletal Disorders: No Hx Falls: No - GASTROINTESTINAL Hx Gastrointestinal Disorders: Yes Hx Vomiting: Yes Other/Comment: BOWEL OBSTRUCTION PER PATIENT. CHRONIC GI PROBLEM/VOMITNG - GENITOURINARY/GYNECOLOGICAL Hx Genitourinary Disorders: No - PSYCHIATRIC Hx Substance Use: No - SURGICAL HISTORY Hx Surgeries: Yes Hx Section: Yes (x 2) Other/Comment: x 2, exploratory laparotomy and bowel resection for SBO due to bowel injury during prior ,fibroid removal - ANESTHESIA Hx Anesthesia: Yes Hx Anesthesia Reactions: No Hx Malignant Hyperthermia: No Meds Allergies/Adverse Reactions: Allergies Allergy/AdvReac Type Severity Reaction Status Date / Time peanut Allergy Intermediate Verified 08/23/16 14:12 Physical Exam - Constitutional Appears: Non-toxic, No Acute Distress - Head Exam Head Exam: ATRAUMATIC, NORMAL INSPECTION, NORMOCEPHALIC - Eye Exam Eye Exam: EOMI Pupil Exam: PERRL - ENT Exam ENT Exam: Mucous Membranes Dry - Respiratory Exam Respiratory Exam: NORMAL BREATHING PATTERN. absent: Wheezes, Respiratory Distress - Cardiovascular Exam Cardiovascular Exam: REGULAR RHYTHM. absent: Tachycardia - GI/Abdominal Exam GI & Abdominal Exam: Distended, Hernia (umbilical), Normal Bowel Sounds, Soft, Tenderness. absent: Guarding - Extremities Exam Extremities exam: Positive for: normal inspection, pedal pulses present - Neurological Exam Neurological exam: Alert, Oriented x3 - Psychiatric Exam Psychiatric exam: Normal Affect, Normal Mood - Skin Skin Exam: Dry, Intact, Normal Color, Warm Additional comments: midline abdominal incision from previous surgery noted Results - Vital Signs Recent Vital Signs: Last Vital Signs Temp 98.2 F 07/23/18 06:54 Pulse 78 07/23/18 06:54 Resp 16 07/23/18 06:54 BP 154/88 H 07/23/18 06:54 Pulse Ox 100 07/23/18 06:54 - Labs Result Diagrams: 07/23/18 05:27 07/23/18 05:27 Labs: Laboratory Results - last 24 hr 07/23/18 07/23/18 07/23/18 05:27 05:27 05:27 WBC 5.9 RBC 4.14 Hgb 13.4 D Hct 39.3 MCV 94.9 D MCH 32.5 H MCHC 34.2 RDW 12.6 Plt Count 203 MPV 8.6 Neut % (Auto) 80.0 H Lymph % (Auto) 13.7 L Phillips % (Auto) 5.6 Eos % (Auto) 0.1 Baso % (Auto) 0.6 Neut # (Auto) 4.7 Lymph # (Auto) 0.8 L Phillips # (Auto) 0.3 Eos # (Auto) 0.0 Baso # (Auto) 0.0 PT 12.3 H INR 1.1 APTT 33.3 pO2 VBG pH VBG pCO2 VBG HCO3 VBG Total CO2 VBG O2 Sat (Calc) VBG Base Excess VBG Potassium Glucose Lactate Sodium 139 Potassium 4.0 Chloride 104 Carbon Dioxide 26 Anion Gap 13 BUN 14 Creatinine 0.7 Est GFR ( Amer) > 60 Est GFR (Non-Af Amer) > 60 Random Glucose 151 H D Calcium 10.0 Total Bilirubin 0.5 AST 28 ALT 17 Alkaline Phosphatase 79 Total Protein 8.1 Albumin 4.4 Globulin 3.7 Albumin/Globulin Ratio 1.2 Lipase 87 Venous Blood Potassium 07/23/18 05:44 WBC RBC Hgb Hct MCV MCH MCHC RDW Plt Count MPV Neut % (Auto) Lymph % (Auto) Phillips % (Auto) Eos % (Auto) Baso % (Auto) Neut # (Auto) Lymph # (Auto) Phillips # (Auto) Eos # (Auto) Baso # (Auto) PT INR APTT pO2 47 VBG pH 7.47 H VBG pCO2 37 L VBG HCO3 27.1 VBG Total CO2 28.0 VBG O2 Sat (Calc) 88.9 H VBG Base Excess 3.2 H VBG Potassium 3.5 L Glucose 142 H Lactate 1.5 Sodium 139.0 Potassium Chloride 108.0 H Carbon Dioxide Anion Gap BUN Creatinine Est GFR ( Amer) Est GFR (Non-Af Amer) Random Glucose Calcium Total Bilirubin AST ALT Alkaline Phosphatase Total Protein Albumin Globulin Albumin/Globulin Ratio Lipase Venous Blood Potassium 3.5 L Assessment & Plan - Assessment and Plan (Free Text) Assessment: 63F w/ small bowel obstruction Plan: NPO IVF Antiemetics and analgesics PRN Fleet enema NGT insertion - minimal output Monitor output Continue flushing NGT CTAP: dilated loops of bowel, air fluid levels, small umbilical hernia, colon full of stool Serial abd exams Strict Is and Os Further recs per Dr. Scar Hughes PGY1
[2018-07-23] MEDS ORDERED: Lactated Ringer's 1,000 ML IV SCH (09:15)
--- NOTE | 2018-07-23 09:48 | CT ---
Date of service: 07/23/2018 PROCEDURE: CT Abdomen and Pelvis without intravenous contrast HISTORY: abd pain COMPARISON: None. TECHNIQUE: Technique. Contrast dose: Radiation dose: Total exam DLP = 351.32 mGy-cm. This CT exam was performed using one or more of the following dose reduction techniques: Automated exposure control, adjustment of the mA and/or kV according to patient size, and/or use of iterative reconstruction technique. FINDINGS: LOWER THORAX: Unremarkable. LIVER: Unremarkable. No gross lesion or ductal dilatation. GALLBLADDER AND BILE DUCTS: Unremarkable. PANCREAS: Unremarkable. No gross lesion or ductal dilatation. SPLEEN: Unremarkable. ADRENALS: Unremarkable. No mass. KIDNEYS AND URETERS: Unremarkable. No hydronephrosis. No solid mass. VASCULATURE: Unremarkable. No aortic aneurysm. No aortic atherosclerotic calcification or mural plaque present. BOWEL: Multiple dilated loops of small bowel consistent with a small-bowel obstruction. Anastomotic sutures involving the bowel in there for possible ideology are adhesions though there is a periumbilical hernia containing a short segment of small bowel loops which raises suspicion for incarcerated hernia. Recommend clinical correlation. APPENDIX: Unremarkable. Normal appendix. PERITONEUM: Unremarkable. No free fluid. No free air. LYMPH NODES: Unremarkable. No enlarged lymph nodes. BLADDER: Unremarkable. REPRODUCTIVE: Leiomyomatous uterus. BONES: No acute fracture. OTHER FINDINGS: None. IMPRESSION: Multiple dilated loops of small bowel consistent with a small-bowel obstruction. Anastomotic sutures involving the bowel in there for possible ideology are adhesions though there is a periumbilical hernia containing a short segment of small bowel loops which raises suspicion for incarcerated hernia. Recommend clinical correlation.
[2018-07-23] MEDS ORDERED: Lactated Ringer's 1,000 ML ONE (10:07)
--- NOTE | 2018-07-23 10:15 | RAD ---
Date of service: 07/23/2018 PROCEDURE: CHEST RADIOGRAPH, 1 VIEW HISTORY: abd pain COMPARISON: 08/24/2016 FINDINGS: LUNGS: Clear. PLEURA: No pneumothorax or pleural fluid seen. CARDIOVASCULAR: No aortic atherosclerotic calcification present. Normal. OSSEOUS STRUCTURES: No significant abnormalities. VISUALIZED UPPER ABDOMEN: Normal. OTHER FINDINGS: None. IMPRESSION: No active disease.No significant interval change compared to the prior examination(s).
--- NOTE | 2018-07-23 12:12 | CP.PCM.PN ---
Subjective - Date & Time of Evaluation Date of Evaluation: 07/23/18 Time of Evaluation: 12:11 - Subjective Subjective: Progress note for Dr. Stein Patient is a 63 year old female who presents with complains of abdominal pain, nausea, and vomiting as of 5pm last night. Patient states vomit is nonbloody, nonbilious. She denies blood in stool, diarrhea and constipation, stating her last bowel movement was yesterday morning and normal. She denies chest pain, palpitations, dyspnea, cough, headaches, fevers, leg pain and swelling. PMD: Dr. Stein PMHx: denies SurgHx: Small bowel resection in 2004, myomectomy, FamHx: denies SocHx: denies tobacco, alcohol, and drug use Allergies: NKDA Medications: vitamin C and D Objective - Vital Signs/Intake and Output Vital Signs (last 24 hours): Temp Pulse Resp BP Pulse Ox 98.6 F 57 L 20 138/79 100 07/23/18 11:50 07/23/18 11:50 07/23/18 11:50 07/23/18 11:50 07/23/18 11:50 - Medications Medications: Current Medications Lactated Ringer's (Lactated Ringer's) 1,000 mls @ 100 mls/hr IV .Q10H [facility] Last Admin: 07/23/18 10:36 Dose: 100 mls/hr Morphine Sulfate (Morphine) 2 mg IVP Q4 PRN PRN Reason: Pain, moderate (4-7) Last Admin: 07/23/18 10:35 Dose: 2 mg Ondansetron HCl (Zofran Inj) 4 mg IVP Q6H PRN PRN Reason: Nausea/Vomiting Last Admin: 07/23/18 10:10 Dose: 4 mg - Labs Labs: 07/23/18 05:27 07/23/18 05:27 PT 12.3 SECONDS (9.7-12.2) H 07/23/18 05:27 INR 1.1 07/23/18 05:27 APTT 33.3 SECONDS (21-34) 07/23/18 05:27 - Constitutional Appears: No Acute Distress - Head Exam Head Exam: ATRAUMATIC, NORMAL INSPECTION - Eye Exam Eye Exam: EOMI, Normal appearance - ENT Exam ENT Exam: Mucous Membranes Moist Additional comments: NGT in place - Respiratory Exam Respiratory Exam: Clear to Ausculation Bilateral, NORMAL BREATHING PATTERN. absent: Rales, Rhonchi, Wheezes, Respiratory Distress - Cardiovascular Exam Cardiovascular Exam: REGULAR RHYTHM, +S1, +S2 - GI/Abdominal Exam GI & Abdominal Exam: Distended, Soft, Tenderness (diffuse tenderness), Normal Bowel Sounds. absent: Firm - Extremities Exam Extremities Exam: Normal Inspection. absent: Pedal Edema, Tenderness - Neurological Exam Neurological Exam: Alert, Awake, Oriented x3 - Psychiatric Exam Psychiatric exam: Normal Affect, Normal Mood - Skin Skin Exam: Dry, Warm Assessment and Plan - Assessment and Plan (Free Text) Plan: Patient is a 63 year old female who presents with complains of abdominal pain, nausea, and vomiting as of 5pm last night. Partial Small Bowel Obstruction - Abd/Pel CT: multiple dilated loops of small bowel consistent with a small bowel obstruction. Anastomotic sutures involving the bowel in there for possible ideology are adhesions though there is a periumbilical hernia, containing a short segment of small bowel loops which raise suspicion for incarcerated hernia. - Surgery consulted, Dr. Abbott; help appreciated - NPO - NGT placed, on suction - Fleet enema given - Continue moprhine 2mg IV Q4 prn for pain, Zofran 4mg IV Q4 prn for nausea Case discussed with Dr. Emil Hicks, PGY2
[2018-07-23] MEDS: Lactated Ringer's 1,000 ML IV SCH ×2 (13:00→21:07)
--- NOTE | 2018-07-23 13:16 | RAD ---
Date of service: 07/23/2018 HISTORY: NGT insertion COMPARISON: July 23, 2018. Study performed 06:03 FINDINGS: LUNGS: No active pulmonary disease. PLEURA: No significant pleural effusion identified, no pneumothorax apparent. CARDIOVASCULAR: No atherosclerotic calcification present Normal. OSSEOUS STRUCTURES: No significant abnormalities. VISUALIZED UPPER ABDOMEN: Normal. OTHER FINDINGS: Nasogastric tube poorly visualized, the tip likely distal esophagus within 3 cm of the gastroesophageal junction. The finding is marked on the study for review. IMPRESSION: Poorly visualized nasogastric tube, the tip likely resides in the distal esophagus. The approximate location is been marked on the accompanying study.
[2018-07-23 16:21] VITALS: RESP 20
[2018-07-24] MEDS: Lactated Ringer's 1,000 ML IV SCH ×2 (03:00→20:52)
[2018-07-24 07:38] LABS: BASO % 0.3 % (0.0-2.0); EOS # 0.1 K/uL (0.0-0.7); EOS % 1.8 % (0.0-4.0); HEMOGLOBIN 11.9 g/dL (11.0-16.0); LYMPH # 1.5 K/uL (1.0-4.3); LYMPH % 32.3 % (20.0-40.0); MEAN CORPUSCULAR HEMOGLOBIN 33.2 pg (27.0-31.0); MEAN CORPUSCULAR HGB CONC 35.3 g/dL (33.0-37.0); MEAN PLATELET VOLUME 8.9 fL (7.2-11.7); MONO # 0.6 K/uL (0.0-0.8); MONO % 12.2 % (0.0-10.0); NEUT # 2.4 K/uL (1.8-7.0); NEUT % 53.4 % (50.0-75.0); NRBC % 0.2 % (0.0-2.0); RBC 3.6 Mil/uL (3.80-5.20); RED CELL DISTRIBUTION WIDTH 12.9 % (11.5-14.5); WHITE BLOOD COUNT 4.5 K/uL (4.8-10.8)
[2018-07-24 07:51] LABS: ALB/GLOB RATIO 1.1 (1.0-2.1); ALBUMIN 3.4 g/dL (3.5-5.0); ALT/SGPT 21 U/L (9-52); AST/SGOT 23 U/L (14-36); BLOOD UREA NITROGEN 16 mg/dL (7-17); CALCIUM 8.8 mg/dl (8.6-10.4); GFR NON-AFRICAN AMERICAN > 60
--- NOTE | 2018-07-24 08:21 | HP ---
HISTORY OF PRESENT ILLNESS: A 63-year-old female, admitted to hospital with the chief complaint of abdominal pain, nausea, vomiting. The patient has history of recurrent intestinal obstruction, history of adhesions, bowel resection, myomectomy, . The patient does not smoke. PHYSICAL EXAMINATION: GENERAL: The patient is awake, alert, oriented. VITAL SIGNS: Temperature 98, pulse 90. HEENT: Within normal limits. NECK: Supple. CHEST: Symmetrical. HEART: Regular. ABDOMEN: Distended. EXTREMITIES: No edema. ASSESSMENT AND PLAN: Recurrent intestinal obstruction. At this point, the patient will get G-tube suction, surgical consult. Nilsa Stein MD
--- NOTE | 2018-07-24 12:41 | CP.PCM.PN ---
Subjective - Date & Time of Evaluation Date of Evaluation: 07/24/18 Time of Evaluation: 12:39 - Subjective Subjective: Medicine Note for Dr. Stein's Service Patient was seen and examined at bedside. Patient reports her abdominal pain has lessened. She had an enema yesterday - reported a bowel movement after. This morning she was given another enema - no flatus or bowel movement. NGT - total 300 mL output Objective - Vital Signs/Intake and Output Vital Signs (last 24 hours): Temp Pulse Resp BP Pulse Ox 97.8 F 62 20 138/87 95 07/24/18 07:00 07/24/18 07:00 07/24/18 07:00 07/24/18 07:00 07/24/18 07:00 Intake and Output: 07/24/18 07/24/18 06:59 18:59 Intake Total 500 1000 Output Total 50 Balance 450 1000 - Medications Medications: Current Medications Lactated Ringer's (Lactated Ringer's) 1,000 mls @ 125 mls/hr IV .Q8H HERNANDEZ Last Admin: 07/24/18 03:00 Dose: 125 mls/hr Morphine Sulfate (Morphine) 2 mg IVP Q4 PRN PRN Reason: Pain, moderate (4-7) Last Admin: 07/23/18 16:10 Dose: 2 mg Ondansetron HCl (Zofran Inj) 4 mg IVP Q6H PRN PRN Reason: Nausea/Vomiting Last Admin: 07/23/18 16:11 Dose: 4 mg - Labs Labs: 07/24/18 07:28 07/24/18 07:28 PT 12.3 SECONDS (9.7-12.2) H 07/23/18 05:27 INR 1.1 07/23/18 05:27 APTT 33.3 SECONDS (21-34) 07/23/18 05:27 - Constitutional Appears: No Acute Distress - Head Exam Head Exam: NORMAL INSPECTION, NORMOCEPHALIC - Eye Exam Eye Exam: EOMI, Normal appearance, PERRL Pupil Exam: NORMAL ACCOMODATION - ENT Exam Additional comments: NGT in place - Respiratory Exam Respiratory Exam: Clear to Ausculation Bilateral, NORMAL BREATHING PATTERN. absent: Decreased Breath Sounds - Cardiovascular Exam Cardiovascular Exam: REGULAR RHYTHM, RRR - GI/Abdominal Exam GI & Abdominal Exam: Soft, Tenderness (TTP all throughout abdomen ), Normal Bowel Sounds. absent: Distended Assessment and Plan - Assessment and Plan (Free Text) Plan: Partial Small Bowel Obstruction -- Surgery consulted, Dr. Abbott; help appreciated Imaging: - Abd/Pel CT: multiple dilated loops of small bowel consistent with a small bowel obstruction. Anastomotic sutures involving the bowel in there for possible ideology are adhesions though there is a periumbilical hernia, containing a short segment of small bowel loops which raise suspicion for incarcerated hernia. Management: - NPO - NGT placed, on suction - 300 ml output to date - Fleet enema given x2, with bowel movement last night, no flatus - On IVF, Zofran 4mg IV Q4 prn for nausea Prophylactic Measures - GI PPX: not indicated - DVT PPX: SCDs suffice DW Dr. Stein, Kat Kiser DO, PGY2
--- NOTE | 2018-07-24 16:08 | CP.PCM.PN ---
Subjective - Date & Time of Evaluation Date of Evaluation: 07/24/18 Time of Evaluation: 16:05 - Subjective Subjective: Surgery Progress Note for Dr. Abbott 63F seen and evaluated at bedside this morning. No acute events overnight. No complaints this morning. Patient having BM with fleet enema. Denies abd pain, nausea, vomiting. Patient NPO. Denies f/c, SOB, CP, or urinary symptoms. Objective - Vital Signs/Intake and Output Vital Signs (last 24 hours): Temp Pulse Resp BP Pulse Ox 98.0 F 67 20 155/92 H 99 07/24/18 16:02 07/24/18 16:02 07/24/18 16:02 07/24/18 16:02 07/24/18 16:02 Intake and Output: 07/24/18 07/24/18 06:59 18:59 Intake Total 500 1000 Output Total 50 Balance 450 1000 - Medications Medications: Current Medications Lactated Ringer's (Lactated Ringer's) 1,000 mls @ 125 mls/hr IV .Q8H [facility] Last Admin: 07/24/18 03:00 Dose: 125 mls/hr Piperacillin Sod/Tazobactam (Sod 3.375 gm/ Sodium Chloride) 100 mls @ 200 mls/hr IVPB Q8H [facility]; Protocol Ondansetron HCl (Zofran Inj) 4 mg IVP Q6H PRN PRN Reason: Nausea/Vomiting Last Admin: 07/23/18 16:11 Dose: 4 mg Pneumococcal Polyvalent Vaccine (Pneumovax 23 Vaccine) 0.5 ml IM .ONCE ONE Stop: 07/25/18 10:01 - Labs Labs: 07/24/18 07:28 07/24/18 07:28 PT 12.3 SECONDS (9.7-12.2) H 07/23/18 05:27 INR 1.1 07/23/18 05:27 APTT 33.3 SECONDS (21-34) 07/23/18 05:27 - Constitutional Appears: Well, Non-toxic, No Acute Distress - Head Exam Head Exam: ATRAUMATIC, NORMAL INSPECTION, NORMOCEPHALIC - Eye Exam Eye Exam: EOMI Pupil Exam: PERRL - ENT Exam ENT Exam: Mucous Membranes Moist - Respiratory Exam Respiratory Exam: NORMAL BREATHING PATTERN. absent: Wheezes, Respiratory Distress - Cardiovascular Exam Cardiovascular Exam: REGULAR RHYTHM, +S1, +S2. absent: Murmur - GI/Abdominal Exam GI & Abdominal Exam: Soft, Normal Bowel Sounds. absent: Distended, Tenderness - Neurological Exam Neurological Exam: Alert, Awake, Oriented x3 - Psychiatric Exam Psychiatric exam: Normal Affect, Normal Mood - Skin Skin Exam: Dry, Intact, Normal Color, Warm Assessment and Plan - Assessment and Plan (Free Text) Assessment: 63F w/ SBO, resolving Plan: Continue fleet enemas Started on Zosyn empirically ABD xray in AM to monitor improvement NGT removed today CLD Monitor diet tolerance and bowel function D/w Dr. Scar Hughes PGY1
[2018-07-24] MEDS: Piperacill/Tazo 3.375gm in Dex 3.375 GM/50 ML BAG IVPB SCH (18:00)
--- NOTE | 2018-07-24 21:10 | CARD ---
APPROVED REPORT Date of service: 07/23/2018 EKG Measurement Heart [id number] <Conclusion> Normal sinus rhythm Normal ECG
[2018-07-25] MEDS: Piperacill/Tazo 3.375gm in Dex 3.375 GM/50 ML BAG IVPB SCH ×2 (01:40→12:43)
[2018-07-25] MEDS: Lactated Ringer's 1,000 ML IV SCH ×2 (05:42→12:44)
[2018-07-25 06:49] LABS: BASO % 0.5 % (0.0-2.0); EOS # 0.1 K/uL (0.0-0.7); EOS % 2.5 % (0.0-4.0); HEMOGLOBIN 10.8 g/dL (11.0-16.0); LYMPH # 1.3 K/uL (1.0-4.3); LYMPH % 31.3 % (20.0-40.0); MEAN CELL VOLUME 94.1 fL (81.0-99.0); MEAN CORPUSCULAR HEMOGLOBIN 32.9 pg (27.0-31.0); MEAN CORPUSCULAR HGB CONC 34.9 g/dL (33.0-37.0); MEAN PLATELET VOLUME 8.9 fL (7.2-11.7); MONO # 0.4 K/uL (0.0-0.8); MONO % 9.6 % (0.0-10.0); NEUT # 2.3 K/uL (1.8-7.0); NEUT % 56.1 % (50.0-75.0); NRBC % 0.1 % (0.0-2.0); RBC 3.3 Mil/uL (3.80-5.20); RED CELL DISTRIBUTION WIDTH 12.6 % (11.5-14.5); WHITE BLOOD COUNT 4.1 K/uL (4.8-10.8)
--- NOTE | 2018-07-25 07:06 | CP.PCM.PN ---
Subjective - Date & Time of Evaluation Date of Evaluation: 07/25/18 Time of Evaluation: 07:05 - Subjective Subjective: Progress note for Dr. Stein Patient was seen and examined at bedside in no acute distress. Patient reports feeling better and no longer has abdoinal pain or nausea. She has been tolerating her diet and +flatus. Patient denies chest pain, palpitations, dyspnea, abdominal pain, n/v, fevers, leg pain, dysuria. No acute events overnight. Objective - Vital Signs/Intake and Output Vital Signs (last 24 hours): Temp Pulse Resp BP Pulse Ox 97.8 F 60 20 147/79 99 07/24/18 23:52 07/24/18 23:52 07/24/18 23:52 07/24/18 23:52 07/24/18 23:52 Intake and Output: 07/25/18 07/25/18 06:59 18:59 Intake Total 2120 Balance 2120 - Medications Medications: Current Medications Lactated Ringer's (Lactated Ringer's) 1,000 mls @ 125 mls/hr IV .Q8H HERNANDEZ Last Admin: 07/25/18 05:42 Dose: 125 mls/hr Piperacillin Sod/Tazobactam Sod (Zosyn 3.375 Gm Iv Premix) 3.375 gm in 50 mls @ 100 mls/hr IVPB Q8H HERNANDEZ; Protocol Last Admin: 07/25/18 01:40 Dose: 100 mls/hr Ondansetron HCl (Zofran Inj) 4 mg IVP Q6H PRN PRN Reason: Nausea/Vomiting Last Admin: 07/23/18 16:11 Dose: 4 mg Pneumococcal Polyvalent Vaccine (Pneumovax 23 Vaccine) 0.5 ml IM .ONCE ONE Stop: 07/25/18 10:01 - Labs Labs: 07/25/18 06:40 07/24/18 07:28 PT 12.3 SECONDS (9.7-12.2) H 07/23/18 05:27 INR 1.1 07/23/18 05:27 APTT 33.3 SECONDS (21-34) 07/23/18 05:27 - Additional Findings Additional findings: - Constitutional Appears: No Acute Distress - Head Exam Head Exam: ATRAUMATIC, NORMAL INSPECTION - Eye Exam Eye Exam: EOMI, Normal appearance - ENT Exam ENT Exam: Mucous Membranes Moist - Respiratory Exam Respiratory Exam: Clear to Auscultation Bilateral, NORMAL BREATHING PATTERN. absent: Rales, Rhonchi, Wheezes, Respiratory Distress - Cardiovascular Exam Cardiovascular Exam: REGULAR RHYTHM, +S1, +S2 - GI/Abdominal Exam GI & Abdominal Exam: Soft, Normal Bowel Sounds. absent: Firm, Tenderness, Distended - Extremities Exam Extremities Exam: Normal Inspection. absent: Pedal Edema, Tenderness - Neurological Exam Neurological Exam: Alert, Awake, Oriented x3 - Psychiatric Exam Psychiatric exam: Normal Affect, Normal Mood - Skin Skin Exam: Dry, Warm Assessment and Plan - Assessment and Plan (Free Text) Plan: Patient is a 63 year old female who presents with complains of abdominal pain, nausea, and vomiting as of 5pm last night. Partial Small Bowel Obstruction - Surgery consulted, Dr. Abbott; help appreciated - Advanced diet per surgery-- liquid diet - NGT placed at admission-->discontinued on 07/24/18 - Fleet enema given x2-- having BMs - Continue Zofran 4mg IV Q6 prn for nausea - Zosyn was started by surgery team empirically - Imaging: * Abd/Pel CT: multiple dilated loops of small bowel consistent with a small bowel obstruction. Anastomotic sutures involving the bowel in there for possible ideology are adhesions though there is a periumbilical hernia, containing a short segment of small bowel loops which raise suspicion for incarcerated hernia. Prophylactic Measures - GI PPX: not indicated - DVT PPX: SCDs suffice Dispo: Patient is stable for discharge per Dr. Abbott and Dr. Stein. Paitent must continue bowel regimen (Senna daily and Colace 100mg PO BID for two weeks). Patient must follow up with PMD, Dr. Stein, within one week of discharge. Instructed patient to return to nearest ER if symptoms reoccur or worsen. Case discussed with Dr. Emil Hicks, PGY2
[2018-07-25 07:07] LABS: ALT/SGPT 18 U/L (9-52)
[2018-07-25 07:09] LABS: ALB/GLOB RATIO 1.2 (1.0-2.1); ALBUMIN 3.2 g/dL (3.5-5.0); AST/SGOT 24 U/L (14-36); BLOOD UREA NITROGEN 13 mg/dL (7-17); CALCIUM 8.5 mg/dl (8.6-10.4); GFR NON-AFRICAN AMERICAN > 60
[2018-07-25 07:32] VITALS: BP 167/89; PULSE 59; TEMP 98.2; O2SAT 98
[2018-07-25] MEDS ORDERED: Pneumococcal 23-Valent Vaccine IM ONE (10:00)
--- NOTE | 2018-07-25 12:25 | CP.PCM.PN ---
Subjective - Date & Time of Evaluation Date of Evaluation: 07/25/18 Time of Evaluation: 12:17 - Subjective Subjective: Surgery Progress note. Dr. Abbott Pt seen and examined at bedside. States that she has been having flatus but did not have any significant size BM since she received an enema yesterday. She is tolerating clears and wants to go home. Abd X-Ray pending. No F/C. No CP/SOB. States that abdomen feels less distended and denies any pain. No new complaints. Objective - Vital Signs/Intake and Output Vital Signs (last 24 hours): Temp Pulse Resp BP Pulse Ox 98.2 F 59 L 20 167/89 H 98 07/25/18 07:30 07/25/18 07:30 07/25/18 07:30 07/25/18 07:30 07/25/18 07:30 Intake and Output: 07/25/18 07/25/18 06:59 18:59 Intake Total 2120 Balance 2120 - Medications Medications: Current Medications Lactated Ringer's (Lactated Ringer's) 1,000 mls @ 125 mls/hr IV .Q8H [facility] Last Admin: 07/25/18 05:42 Dose: 125 mls/hr Piperacillin Sod/Tazobactam Sod (Zosyn 3.375 Gm Iv Premix) 3.375 gm in 50 mls @ 100 mls/hr IVPB Q8H [facility]; Protocol Last Admin: 07/25/18 01:40 Dose: 100 mls/hr Ondansetron HCl (Zofran Inj) 4 mg IVP Q6H PRN PRN Reason: Nausea/Vomiting Last Admin: 07/23/18 16:11 Dose: 4 mg - Labs Labs: 07/25/18 06:40 07/25/18 06:40 PT 12.3 SECONDS (9.7-12.2) H 07/23/18 05:27 INR 1.1 07/23/18 05:27 APTT 33.3 SECONDS (21-34) 07/23/18 05:27 - Constitutional Appears: Non-toxic, No Acute Distress - Head Exam Head Exam: ATRAUMATIC, NORMAL INSPECTION, NORMOCEPHALIC - Eye Exam Eye Exam: EOMI, Normal appearance. absent: Scleral icterus - ENT Exam ENT Exam: Mucous Membranes Moist - Respiratory Exam Respiratory Exam: NORMAL BREATHING PATTERN. absent: Accessory Muscle Use, Respiratory Distress - Cardiovascular Exam Cardiovascular Exam: RRR. absent: JVD - GI/Abdominal Exam GI & Abdominal Exam: Soft. absent: Distended, Firm, Guarding, Tenderness, R ebound - Extremities Exam Extremities Exam: Normal Inspection. absent: Calf Tenderness - Neurological Exam Neurological Exam: Alert, Awake, Oriented x3 - Psychiatric Exam Psychiatric exam: Normal Affect, Normal Mood - Skin Skin Exam: Dry, Intact, Normal Color, Warm Assessment and Plan - Assessment and Plan (Free Text) Assessment: 63yo F with partial SBO Plan: - Continue Bowel regimen - f/u Abd Xray - Will need to have regular diet tolerance prior to being cleared for discharge - Advance diet to FLD - monitor bowel function Further recs as per Dr. Scar Ballesteros PGY2 surgery
--- NOTE | 2018-07-25 15:23 | RAD ---
Date of service: 07/25/2018 HISTORY: SBO COMPARISON: CT abdomen and pelvis with IV contrast performed 07/23/18 TECHNIQUE: 1 view obtained. FINDINGS: BOWEL: Nonspecific bowel gas pattern. Moderate constipation. BONES: No acute osseous abnormality is detected. OTHER FINDINGS: None. IMPRESSION: Nonspecific bowel gas pattern. Moderate constipation.
== END 2018-07-25 15:05 | disposition home or self-care (01) | DRG 390 ==
LOC: C.ER 04:55 → C.9E 08:46 → C.3T 14:17 → C.9E 14:18 → C.3T 14:54
PROVIDERS: ADMIT Internal Medicine Pulmonary Disease; ATTEND Internal Medicine Pulmonary Disease
DX: K56.600 Partial intestinal obstruction, unspecified as to cause (principal); K42.9 Umbilical hernia without obstruction or gangrene